=== PATIENT | male | born 1940 | race Caucasian/White ===

== ENCOUNTER 2022-12-08 09:19 | Emergency (ER) | payer MEDICARE, OTHER ==
[~2022-12-08] VITALS: Ht 172.7 cm; Wt 68.0 kg
--- NOTE | 2022-12-08 09:48 | ED Fall/Injury ---
General Chief Complaint: Trauma-Non Activation Stated Complaint: FALL | LT RIB INJ Source: patient Exam Limitations: no limitations History of Present Illness Date Seen by Provider: Dec 08, 2022 Time Seen by Provider: 09:35 Initial Comments 82 yo M here after fall from a ladder last night. Has L rib pain currently. States was on a low rung, but fell onto left side. Did hit his head, near loss of consciousness. He is not on blood thinning medications. Has been ambulatory. Mild TRIPLETT but no changes in vision, weakness numbness or tingling. L rib pain is sharp, stabbing and worse with movement, respiration, palpation. Took tylenol prior to arrival which seemed to help some. Allergies and Home Medications Allergies Coded Allergies: morphine (Verified Allergy, Unknown, 12/08/22) Patient Home Medication List Home Medication List Reviewed: Yes Review of Systems Review of Systems Constitutional: no symptoms reported Eyes: No Symptoms Reported Ears, Nose, Mouth, Throat: no symptoms reported Respiratory: no symptoms reported Cardiovascular: other (L rib pain) Gastrointestinal: no symptoms reported Genitourinary: no symptoms reported Musculoskeletal: no symptoms reported Skin: no symptoms reported Psychiatric/Neurological: No Symptoms Reported Past [id number]-Hfogvz-Uxdbdz Hx Patient Social History Tobacco Use?: No Use of E-Cig and/or Vaping dev: No Substance use?: No Alcohol Use?: No Family Medical History Reviewed Nursing Family Hx No Pertinent Family Hx Physical Exam Vital Signs Vital Signs - First Documented Capillary Refill : Height, Weight, BMI Height: '" Weight: lbs. oz. kg; BMI Method: General Appearance: WD/WN, no apparent distress HEENT: normal ENT inspection, pharynx normal Neck: non-tender, supple Cardiovascular: regular rate, rhythm, no murmur Respiratory: lungs clear, normal breath sounds, no respiratory distress, no accessory muscle use, other (tenderness to palpation L mid ribs, no crepitus or deformity. ) Gastrointestinal: normal bowel sounds, non tender, soft, no organomegaly Back: normal inspection, no vertebral tenderness Extremities: normal range of motion, non-tender, normal inspection, no pedal edema, no calf tenderness Neurologic/Psychiatric: alert, normal mood/affect, oriented x 3 Skin: normal color, warm/dry Lymphatic: no adenopathy Progress/Results/Core Measures Results/Orders My Orders Orders - MOMO,VIVEK L DO Chest Pa/Lat (2 View) (12/08/22 09:43) Ct Head Wo (12/08/22 09:44) Vital Signs/I&O 12/08/22 12/08/22 09:34 09:34 Temp 36.4 36.4 Pulse 70 70 Resp 16 16 B/P (MAP) 185/95 (125) 185/95 (125) Pulse Ox 98 O2 Delivery Room Air Room Air Departure Communication (Admissions) Patient is hemodynamically stable. He has no abnormalities on his chest x-ray. Specifically no pneumothorax, obvious rib fractures. Clinically significant rib contusions on the left side. To be provided incentive spirometer, recommendations reviewed breathing exercises as well as pain control with hydrocodone. I did staff genetic counselor him on us of narcotic pain medications at length. Advised he may also use anti-inflammatory medicines as well. CT scan obtained because he hit his head pain due to his age and mild headache. This is negative. No indication of emergent medical condition at this time. He is discharged home in stable condition after questions were sought and answered Impression Primary Impression: Fall Qualified Codes: W19.XXXA - Unspecified fall, initial encounter Additional Impressions: Closed head injury Qualified Codes: S09.90XA - Unspecified injury of head, initial encounter Rib pain on left side Disposition: 01 HOME, SELF-CARE Condition: Stable Departure-Patient Inst. Referrals: LAURA MCKEON DO (PCP/Family) Primary Care Physician Patient Instructions: RIB CONTUSION Add. Discharge Instructions: You were seen in the emergency department for left-sided rib pain. No emergent medical conditions identified. Chest x-ray does not show any obvious evidence for broken ribs. You likely bruised your ribs which can be just as bad. Please take the pain medicine as prescribed as needed. This may make you drowsy so do not drive or make important decisions while you are taking it. Use the incentive spirometer multiple times per day to help fully inflate your lungs and prevent possible pneumonia from not taking deep breaths. Return to the emergency department for any severe concerns. Follow-up with your primary doctor for any nonemergent needs. All discharge instructions reviewed with patient and/or family. Voiced understanding. Scripts Hydrocodone Bit/Acetaminophen (HYDROcodone/APAP 5 MG/325 MG TAB) 1 Tab Tab 1 TAB PO Q6H for Pain for 3 Days, #12 TAB Prov: VIVEK BARR DO 12/08/22 VIVEK BARR DO Dec 08, 2022 09:48
--- NOTE | 2022-12-08 10:10 | Diagnostic Imaging Report ---
EXAMINATION: Chest 2 view HISTORY: Chest pain COMPARISON: None available. FINDINGS: The lungs are clear without edema or pneumonia. No pleural effusion or pneumothorax. Heart size is normal. IMPRESSION: 1. Clear lungs. Dictated by: Dictated on workstation # [id number]
--- NOTE | 2022-12-08 10:16 | Diagnostic Imaging Report ---
PROCEDURE: CT head without contrast. TECHNIQUE: Multiple contiguous axial images were obtained through the brain without the use of intravenous contrast. Auto Exposure Controls were utilized during the CT exam to meet ALARA standards for radiation dose reduction. INDICATION: Fall with head injury. No prior studies are available for comparison. Ventricles and sulci are prominent consistent with cerebral volume loss. No sulcal effacement or midline shift is identified. No acute intra-axial or extra-axial hemorrhage is detected. Cisterns are patent. Visualized paranasal sinuses are clear apart from mucosal thickening of the ethmoid air cells. IMPRESSION: No acute intracranial process is detected. Dictated by: Dictated on workstation # [id number]
[2022-12-08] MEDS ORDERED: ACHD5005 PO (10:28)
[2022-12-08 10:44] VITALS: BP 134/71
== END 2022-12-08 10:44 | disposition home or self-care (01) ==
LOC: EDUNIT# 09:19 → ER 09:22
DX: S09.90XA Unspecified injury of head, initial encounter (principal); R07.81 Pleurodynia; Z28.310 Unvaccinated for COVID-19; W11.XXXA Fall on and from ladder, initial encounter
CPT/HCPCS: 70450; 71046; 99282